=== PATIENT | female | born 1945 | race Caucasian/White ===

== ENCOUNTER → 2020-12-19 | Outpatient (CLI) | payer MEDICARE, OTHER ==
[2020-12-23 09:43] LABS: THYROGLOBULIN AB SCREEN <1.8 IU/mL (<1.8); THYROGLOBULIN TUMOR MARKER 48 ng/mL (())
== END ==
LOC: COL.RAD 08:30
PROVIDERS: Otolaryngology
DX: C73 Malignant neoplasm of thyroid gland (principal)